=== PATIENT | male | born 1950 | race Caucasian/White ===

== ENCOUNTER 2016-04-16 18:03 | Inpatient (IN) | payer OTHER ==
--- NOTE | 2016-04-16 19:13 | EDPHY ---
H & P HPI/ROS: CHIEF COMPLAINT: back pain HISTORY OF PRESENT ILLNESS: Patient is a 66-year-old male status post CVA with right-sided paralysis who presents to the emergency department with ongoing back pain. He states he has had chronic low back pain. He was in [place] but was kicked out because he ran out of insurance. He has been on the street. He is brought in by ambulance for his back pain. He was found to have stool. The patient denies incontinence but states that he has trouble getting out of his wheelchair because he is homeless. Patient reports mild discomfort in the skin around his buttocks. He has had no fevers or chills. Patient denies scrotal pain. No dysuria or frequency. REVIEW OF SYSTEMS: My complete review of systems is negative except as mentioned in the HPI. Past Medical/Surgical History: Includes CVA, hyperlipidemia, hypertension, alcohol abuse, marijuana abuse Social history: The patient uses alcohol and marijuana. The patient is homeless. Smoking Status: Heavy smoker Physical Exam: 36.4, 115/76, 104, 18, 94% on room air GENERAL: No acute distress, alert. HEENT: Eyes normal to inspection, normal pharynx, no signs of dehydration. NECK: No thyromegaly, no lymphadenopathy, supple. RESPIRATORY: Clear to auscultation bilaterally, no rales, rhonchi or wheezing. CVS: Regular rate and rhythm, no rubs, murmurs, or gallops. ABDOMEN: Soft, nontender, nondistended, no organomegaly. : The patient is covered in stool. Patient has a mildly erythematous scrotum. No tenderness to palpation. No palpable mass. Patient has skin break down in the perineum and posterior thigh bilaterally. BACK: Normal to inspection, no CVA tenderness. SKIN: Normal color, no rash, warm, dry. No pallor. CU exam. EXTREMITIES: No pedal edema, no calf tenderness, no Homans sign or cords, no joint swelling. NEURO/PSYCH: Higher functions: Alert and Oriented x3. Normal speech and cognition. Normal mood and affect. Cranial nerves: right facial droop (baseline). Cerebellar: Normal as tested. Good finger to nose, good [id number], normal gait. Peripheral exam: Right upper extremity contracture. Weakness in right upper extremity and right lower extremity. Normal sensation. Constitutional: Initial Vital Signs Temperature (C) 36.4 C 04/16/16 18:10 Heart Rate 104 H 04/16/16 18:10 Respiratory Rate 18 04/16/16 18:10 Blood Pressure 115/76 04/16/16 18:10 O2 Sat (%) 94 04/16/16 18:10 O2 Delivery Mode Room Air Allergies/Adverse Reactions: Tetracyclines Allergy (Verified 04/16/16 18:14) Home Medications: Medication Instructions Recorded Atorvastatin Calcium [Lipitor 20 20 mg PO DAILY 05/24/15 mg (*)] Clopidogrel Bisulfate [Plavix (*)] 75 mg PO DAILY 05/24/15 amLODIPine BESYLATE [Norvasc 5 mg 5 mg PO DAILY@08 05/24/15 (*)] Acetaminophen [Tylenol ES 500 mg 1,000 mg PO Q8 PRN #0 tab 07/21/15 (*)] Cyclobenzaprine [Flexeril 10 MG 10 mg PO TID PRN #30 tab 07/21/15 (*)] Ketorolac Tromethamine [Toradol] 10 mg PO Q6H PRN #16 tab 07/21/15 Lidocaine 5% [Lidoderm 5% Patch 1 ea TD DAILY21 #30 patch 07/21/15 (*)] Patch Removal 1 ea TD DAILY #0 patch 07/21/15 Polyethylene Glycol 3350 [Miralax 17 gm PO DAILY #0 pkt 07/21/15 17 gm (*)] LORazepam 08/06/15 Lipitor 08/06/15 [place] 5/325 (RX) 08/06/15 Seroquel 08/06/15 oxyCODONE/APAP 5/325 [Percocet 1 - 2 tab PO Q6-8PRN PRN #20 tab 09/11/15 5/325 (RX)] Medical Decision Making ED Course/Re-evaluation: In the emergency department I met EMS on arrival. I took report. Patient was cleaned by the nursing staff. Patient had IV placed. Laboratory studies were ordered. Patient was noted to have a low [place] 128[place] [address]. I discussed the patient with Dr. Carlson. He will admit the patient for further evaluation and placement. Patient agrees with this plan. Differential Diagnosis: My differential includes but is not limited to previous CVA, cauda equina syndrome, low back pain, disc herniation, Stephanie's gangrene, cellulitis, abscess, ulceration, bacteremia, sepsis Departure - Departure Disposition: [facility] Inpatient Acute Clinical Impression: Skin breakdown, Hyponatremia Low back pain Qualifiers: Chronicity: chronic Back pain laterality: midline Sciatica presence: without sciatica Qualifier Code: (M54.5) Low back pain Condition: Good
[2016-04-16] MEDS ORDERED: NS 1,000 ML IV ONE (19:39)
[2016-04-16 19:53] LABS: % IMMATURE GRANULYOCYTES 0.5 % (0.0-1.1); ABSOLUTE IMMATURE GRANULOCYTES 0.08 10^3/uL (0.00-0.10); ADD DIFF? NO; ADD MORPH? NO; ADD SCAN? NO; ATYPICAL LYMPHOCYTE FLAG 0 (0-99); FRAGMENT RBC FLAG 0 (0-99); HEMATOCRIT 40.4 % (40.0-51.0); HEMOGLOBIN 14.4 g/dL (13.7-17.5); LEFT SHIFT FLG 0 (0-99); LIPEMIA HEMOLYSIS FLAG 90 (0-99); MEAN CELL HEMOGLOBIN 30.7 pg (27.9-34.1); MEAN CELL HEMOGLOBIN CONCENTR. 35.6 g/dL (32.4-36.7); MEAN CELL VOLUME 86.1 fL (81.5-99.8); MEAN PLATELET VOLUME 8.8 fL (8.7-11.7); PLATELET CLUMPS FLAG 0 (0-99); PLATELET COUNT 313 10^3/uL (150-400); RED BLOOD CELL COUNT 4.69 10^6/uL (4.40-6.38); RED CELL DISTRIBUTION WIDTH 14.6 % (11.5-15.2)
[2016-04-16 20:04] LABS: ANION GAP 13 mEq/L (8-16); CALCIUM 9.5 mg/dL (8.5-10.4); CARBON DIOXIDE 22 mEq/l (22-31); CHLORIDE 94 mEq/L (97-110); CREATININE 0.7 mg/dL (0.7-1.3); GLOMERULAR FILTRATION RATE > 60; GLUCOSE 108 mg/dL (70-100); POTASSIUM 3.9 mEq/L (3.5-5.2); SODIUM 129 mEq/L (134-144)
[2016-04-16] MEDS: oxyCODONE IR 5 MG TAB PO PRN (22:01)
--- NOTE | 2016-04-16 23:07 | GHP ---
[f rep st] HISTORY AND PHYSICAL DATE OF ADMISSION: 04/16/2016 CHIEF COMPLAINT: Weakness. HISTORY OF PRESENT ILLNESS: This is a 66-year-old male with a history of CVA with residual right-sided weakness who left [facility] 2 weeks ago after he did not pay rent. Since leaving [facility], he has been homeless. He is wheelchair bound. He tells me that he has been very weak and has had problems toileting himself. He has been very hungry and has not had food to eat. The patient presented to the emergency department complaining of acute on chronic low back pain. He reports having trouble getting out of his wheelchair and was found to be covered in feces. He denies having any fevers or chills. Denies any new neurologic deficits. He denies any chest pain or shortness of breath. He denies any pain with urination. PAST MEDICAL HISTORY: 1. CVA with residual right-sided weakness approximately 7 years ago. 2. Hypertension. 3. Dyslipidemia. HOME MEDICATIONS: Reviewed. Refer to [facility] for details. ALLERGIES: Tetracycline. SOCIAL HISTORY: Smokes half a pack of cigarettes per day. Denies any alcohol or illicit drug use. FAMILY HISTORY: Reviewed and noncontributory. REVIEW OF SYSTEMS: Comprehensive 10-point review of systems was done and was negative except for as mentioned in the HPI. PHYSICAL EXAMINATION: VITAL SIGNS: Blood pressure 144/80, pulse 99, respiratory rate 18, O2 sat 95% on room air. Temperature afebrile. GENERAL: No acute distress. Disheveled. HEAD: Normocephalic, atraumatic. EYES: PERRLA. Sclerae are anicteric. CARDIOVASCULAR: S1, S2. No JVD. He has 1+ edema, right lower extremity. LUNGS: Clear. No wheezes, rales, or rhonchi. ABDOMEN: Soft, nontender, nondistended. No guarding or rebound tenderness. Normoactive bowel sounds. EXTREMITIES: No clubbing or cyanosis. NEURO: The patient has chronic right-sided weakness. No new focal deficits SKIN: The patient's scrotum is erythematous. He has erythema with some skin breakdown in his thighs and perineum. DIAGNOSTICS: WBC 16, hemoglobin 14.4, hematocrit 40.4, platelets 313. Sodium 129, potassium 3.9, chloride 94, CO2 22, BUN 16, creatinine 0.7, glucose 108. ASSESSMENT AND PLAN: This is a 66-year-old male with a history of stroke and residual right-sided weakness presenting with: 1. Failure to thrive and weakness. Found to be covered in stool with skin breakdown on his perineum. Plan: Once again, the patient had been at [facility], but seems to have been possibly kicked out 2 weeks ago. The patient states that he would not go back there. He will need further care. We will ask for a wound care consultation as well as PT and OT. 2. Leukocytosis without obvious source of infection. Plan: We will monitor for signs and symptoms of infection and repeat a CBC in the morning. We will consider stool studies if he has diarrhea. 3. Hyponatremia that appears to be euvolemic to hypovolemic. Plan: For now, will place him on fluid restriction overnight. We will order a urine sodium as well as a TSH. 4. The patient is at high risk for VTE, and will be placed on low-molecular weight heparin for DVT prophylaxis. 5. Disposition. The patient will be admitted to the hospital under inpatient status since he is high risk and will likely require hospitalization through 2 midnights. 6. Back pain, [id number], with chronic opioid dependence. PLAN: Will continue the patient's home dose of pain medications. If he continues to have back pain, it would be reasonable to proceed with further imaging of his low back as indicated. /[id number]/MODL and [id number]/MODL. MTDD
[2016-04-16 23:18] LABS: COLOR YELLOW; LEUKOCYTE ESTERASE,URINE NEGATIVE (NEGATIVE); NITRITE,URINE NEGATIVE (NEGATIVE)
[2016-04-17 04:54] LABS: ADD DIFF? NO; ADD MORPH? NO; ADD SCAN? NO; ATYPICAL LYMPHOCYTE FLAG 10 (0-99); FRAGMENT RBC FLAG 0 (0-99); HEMOGLOBIN 12.5 g/dL (13.7-17.5); LEFT SHIFT FLG 0 (0-99); LIPEMIA HEMOLYSIS FLAG 90 (0-99); PLATELET CLUMPS FLAG 0 (0-99); RED CELL DISTRIBUTION WIDTH 14.6 % (11.5-15.2)
[2016-04-17 04:59] LABS: % IMMATURE GRANULYOCYTES 0.6 % (0.0-1.1); ABSOLUTE IMMATURE GRANULOCYTES 0.05 10^3/uL (0.00-0.10); HEMATOCRIT 35.2 % (40.0-51.0); MEAN CELL HEMOGLOBIN 30.3 pg (27.9-34.1); MEAN CELL HEMOGLOBIN CONCENTR. 35.5 g/dL (32.4-36.7); MEAN CELL VOLUME 85.4 fL (81.5-99.8); MEAN PLATELET VOLUME 9.1 fL (8.7-11.7); PLATELET COUNT 265 10^3/uL (150-400); RED BLOOD CELL COUNT 4.12 10^6/uL (4.40-6.38)
[2016-04-17 05:12] LABS: ANION GAP 11 mEq/L (8-16); CALCIUM 8.9 mg/dL (8.5-10.4); CARBON DIOXIDE 21 mEq/l (22-31); CHLORIDE 98 mEq/L (97-110); CREATININE 0.9 mg/dL (0.7-1.3); GLOMERULAR FILTRATION RATE > 60; GLUCOSE 125 mg/dL (70-100); POTASSIUM 3.7 mEq/L (3.5-5.2); SODIUM 130 mEq/L (134-144)
[2016-04-17] MEDS: CLOPIDOGREL BISULFATE 75 MG TAB PO SCH (08:49)
[2016-04-17] MEDS: CYCLOBENZAPRINE 10 MG TAB PO PRN ×2 (08:49→14:55)
[2016-04-17] MEDS: amLODIPine BESYLATE 5 MG TAB PO SCH (08:49)
[2016-04-17] MEDS: oxyCODONE IR 5 MG TAB PO PRN ×3 (08:50→20:19)
[2016-04-17] MEDS: ENOXAPARIN 40 MG/0.4 ML SYR SC SCH (08:50)
[2016-04-17] MEDS: ATORVASTATIN CALCIUM 20 MG TAB PO SCH (08:50)
[2016-04-17] MEDS ORDERED: ACETAMINOPHEN 325 MG TAB PO PRN (09:14)
[2016-04-17] MEDS ORDERED: ONDANSETRON 4 MG/2 ML VIAL IVP PRN (09:14)
[2016-04-17] MEDS: NS 1,000 ML IV SCH (10:23)
--- NOTE | 2016-04-17 15:27 | HOSPPROG ---
Hospitalist Progress Note Assessment/Plan: * Hyponatremia due to dehydration -IVF NS * h/o CVA with right weakness - WC bound -Plavix * Skin breakdown -strategic planning manager to see * Tobacco dependence * Chronic LBP - unchanged Subjective: No new complaints Objective: Vital Signs Temp Pulse Resp BP Pulse Ox 36.9 C 144 H 18 119/64 92 04/17/16 08:00 04/17/16 13:51 04/17/16 08:00 04/17/16 08:00 04/17/16 08:00 Laboratory Results 04/17/16 04:19 04/17/16 04:19 04/16/16 04/17/16 04/18/16 05:59 05:59 05:59 Intake Total 500 Output Total 150 200 Balance 350 -200 - Physical Exam Constitutional: no apparent distress, appears nourished, not in pain Cardiovascular: regular rate and rhythym, no murmur, rub, or gallop Respiratory: no respiratory distress, no rales or rhonchi, clear to auscultation Gastrointestinal: normoactive bowel sounds, soft, non-tender abdomen, no palpable masses Skin: no rashes or abrasions, no fluctuance, no induration Neurologic: AAOx3, sensation intact bilaterally Psychiatric: interacting appropriately, not anxious, not encephalopathic, thought process linear ICD10 Worksheet Patient Problems: Problems Problem Status Diagnosed Hyponatremia Acute Low back pain Acute Multiple rib fractures Acute Pneumothorax Acute Skin breakdown Acute Failure to thrive Acute Fall Acute Right lower lobe pneumonia Acute Weakness Acute
--- NOTE | 2016-04-17 15:36 | WOCRNPDOC ---
WOCRN Advanced Assessment Note - Skin Integrity Problem, Advanced Assess Bilateral Medial Thigh Incont Assoc Dermatitis Dressing Type: Open to Air Site Measurement - Head-to-Toe Length X Width X Depth (cm): [id number] Skin Integrity Problem Comment: Scrotum, lenora area and bilateral inner thighs with partial thickness openinings and denudement. Will supply clear zinc lotion to apply. Please reconsult prn.
--- NOTE | 2016-04-17 16:15 | CPEKG ---
Heart Rate: 74 RR Interval: 811 P-R Interval: 160 QRSD Interval: 96 QT Interval: 384 QTC Interval: 426 P Sassafras: 40 QRS Sassafras: -15 T Wave Sassafras: 0 EKG Severity - OTHERWISE NORMAL ECG - EKG Impression: SINUS RHYTHM EKG Impression: BORDERLINE LEFT AXIS DEVIATION Electronically Signed By: Anton Hirsch 18-Apr-2016 21:11:00
[2016-04-18] MEDS: oxyCODONE IR 5 MG TAB PO PRN ×3 (00:27→20:39)
[2016-04-18] MEDS: CYCLOBENZAPRINE 10 MG TAB PO PRN (00:27)
[2016-04-18] MEDS: NS 1,000 ML IV SCH (00:27)
[2016-04-18 04:47] LABS: % IMMATURE GRANULYOCYTES 0.5 % (0.0-1.1); ABSOLUTE IMMATURE GRANULOCYTES 0.02 10^3/uL (0.00-0.10); ADD DIFF? NO; ADD MORPH? NO; ADD SCAN? NO; ATYPICAL LYMPHOCYTE FLAG 30 (0-99); FRAGMENT RBC FLAG 0 (0-99); HEMATOCRIT 34.7 % (40.0-51.0); HEMOGLOBIN 11.9 g/dL (13.7-17.5); LEFT SHIFT FLG 0 (0-99); LIPEMIA HEMOLYSIS FLAG 90 (0-99); MEAN CELL HEMOGLOBIN 29.8 pg (27.9-34.1); MEAN CELL HEMOGLOBIN CONCENTR. 34.3 g/dL (32.4-36.7); MEAN PLATELET VOLUME 8.9 fL (8.7-11.7); PLATELET CLUMPS FLAG 0 (0-99); PLATELET COUNT 220 10^3/uL (150-400); RED BLOOD CELL COUNT 3.99 10^6/uL (4.40-6.38); RED CELL DISTRIBUTION WIDTH 14.7 % (11.5-15.2)
[2016-04-18 05:12] LABS: ANION GAP 7 mEq/L (8-16); CALCIUM 8.5 mg/dL (8.5-10.4); CARBON DIOXIDE 24 mEq/l (22-31); CHLORIDE 104 mEq/L (97-110); CREATININE 0.9 mg/dL (0.7-1.3); GLOMERULAR FILTRATION RATE > 60; GLUCOSE 86 mg/dL (70-100); POTASSIUM 3.9 mEq/L (3.5-5.2); SODIUM 135 mEq/L (134-144)
[2016-04-18] MEDS: CLOPIDOGREL BISULFATE 75 MG TAB PO SCH (08:26)
[2016-04-18] MEDS: amLODIPine BESYLATE 5 MG TAB PO SCH (08:26)
[2016-04-18] MEDS: ATORVASTATIN CALCIUM 20 MG TAB PO SCH (08:26)
[2016-04-18] MEDS: ENOXAPARIN 40 MG/0.4 ML SYR SC SCH (08:27)
--- NOTE | 2016-04-18 13:21 | HOSPPROG ---
Hospitalist Progress Note Assessment/Plan: * Hyponatremia due to dehydration -resolved * h/o CVA with right weakness - WC bound -Plavix -very frustrated with his expressive aphasia - gets agitated * Skin breakdown -budget report clerk to see * Tobacco dependence * Chronic LBP - unchanged Subjective: no new complaints Objective: Vital Signs Temp Pulse Resp BP Pulse Ox 36.9 C 88 18 116/81 H 89 L 04/18/16 07:34 04/18/16 07:34 04/18/16 07:34 04/18/16 07:34 04/18/16 07:34 Laboratory Results 04/18/16 04:17 04/18/16 04:17 04/17/16 04/18/16 04/19/16 05:59 05:59 05:59 Intake Total 500 1570 1440 Output Total 150 900 500 Balance 350 670 940 - Physical Exam Constitutional: no apparent distress, appears nourished, not in pain Ears, Nose, Mouth, Throat: moist mucous membranes, hearing normal, ears appear normal, no oral mucosal ulcers Cardiovascular: regular rate and rhythym, no murmur, rub, or gallop Gastrointestinal: normoactive bowel sounds, soft, non-tender abdomen, no palpable masses Skin: no rashes or abrasions, no fluctuance, no induration Neurologic: AAOx3, weakness (right), facial droop (right), other (significant expressive aphasia) Psychiatric: interacting appropriately, not anxious, not encephalopathic, thought process linear ICD10 Worksheet Patient Problems: Problems Problem Status Diagnosed Hyponatremia Acute Low back pain Acute Multiple rib fractures Acute Pneumothorax Acute Skin breakdown Acute Failure to thrive Acute Fall Acute Right lower lobe pneumonia Acute Weakness Acute
[2016-04-19] MEDS: oxyCODONE IR 5 MG TAB PO PRN ×4 (02:05→21:13)
[2016-04-19] MEDS: CYCLOBENZAPRINE 10 MG TAB PO PRN ×2 (04:31→17:54)
[2016-04-19] MEDS: amLODIPine BESYLATE 5 MG TAB PO SCH (08:34)
[2016-04-19] MEDS: ENOXAPARIN 40 MG/0.4 ML SYR SC SCH (08:34)
[2016-04-19] MEDS: ATORVASTATIN CALCIUM 20 MG TAB PO SCH (08:34)
[2016-04-19] MEDS: CLOPIDOGREL BISULFATE 75 MG TAB PO SCH (08:35)
--- NOTE | 2016-04-19 14:59 | HOSPPROG ---
Hospitalist Progress Note Assessment/Plan: * Hyponatremia due to dehydration -resolved * h/o CVA with right weakness - WC bound -Plavix -very frustrated with his expressive aphasia - gets agitated -screaming at staff all night long -will add low dose zyprexa with prn ativan * Skin breakdown -wound care * Tobacco dependence * Chronic LBP - unchanged * Homeless - await SNF placement Subjective: Per nursing he was very agitated all night, screaming a staff for hours Objective: Vital Signs Temp Pulse Resp BP Pulse Ox 36.6 C 78 18 123/78 H 93 04/19/16 07:52 04/19/16 07:52 04/19/16 07:52 04/19/16 08:34 04/19/16 07:52 Laboratory Results 04/18/16 04:17 04/18/16 04:17 04/18/16 04/19/16 04/20/16 05:59 05:59 05:59 Intake Total 1570 2512 Output Total 900 2025 950 Balance 670 487 -950 - Physical Exam Constitutional: no apparent distress, appears nourished, not in pain Cardiovascular: regular rate and rhythym, no murmur, rub, or gallop Respiratory: no respiratory distress, no rales or rhonchi, clear to auscultation Gastrointestinal: normoactive bowel sounds, soft, non-tender abdomen, no palpable masses Skin: no rashes or abrasions, no fluctuance, no induration Neurologic: AAOx3, sensation intact bilaterally, weakness, facial droop, other ( expressive aphasia) Psychiatric: interacting appropriately, not anxious, not encephalopathic, thought process linear, depressed, flat affect ICD10 Worksheet Patient Problems: Problems Problem Status Diagnosed Hyponatremia Acute Low back pain Acute Multiple rib fractures Acute Pneumothorax Acute Skin breakdown Acute Failure to thrive Acute Fall Acute Right lower lobe pneumonia Acute Weakness Acute
[2016-04-19] MEDS: OLANZapine 2.5 MG TAB PO SCH ×2 (16:04→21:13)
[2016-04-20] MEDS: CYCLOBENZAPRINE 10 MG TAB PO PRN (01:23)
[2016-04-20] MEDS: oxyCODONE IR 5 MG TAB PO PRN ×6 (01:24→23:28)
[2016-04-20] MEDS: LORazepam 0.5 MG TAB PO PRN ×4 (05:41→23:28)
[2016-04-20 05:52] LABS: ANION GAP 8 mEq/L (8-16); CALCIUM 8.9 mg/dL (8.5-10.4); CARBON DIOXIDE 26 mEq/l (22-31); CHLORIDE 101 mEq/L (97-110); CREATININE 0.7 mg/dL (0.7-1.3); GLOMERULAR FILTRATION RATE > 60; GLUCOSE 112 mg/dL (70-100); POTASSIUM 4.2 mEq/L (3.5-5.2); SODIUM 135 mEq/L (134-144)
[2016-04-20] MEDS: OLANZapine 2.5 MG TAB PO SCH ×2 (09:50→19:40)
[2016-04-20] MEDS: CLOPIDOGREL BISULFATE 75 MG TAB PO SCH (09:50)
[2016-04-20] MEDS: ENOXAPARIN 40 MG/0.4 ML SYR SC SCH (09:50)
[2016-04-20] MEDS: ATORVASTATIN CALCIUM 20 MG TAB PO SCH (09:51)
[2016-04-20] MEDS: amLODIPine BESYLATE 5 MG TAB PO SCH (09:51)
--- NOTE | 2016-04-20 12:58 | HOSPPROG ---
Hospitalist Progress Note Assessment/Plan: ASSESSMENT/PLAN: # hyponatremia due to dehydration - resolved # history of a CVA with right-sided weakness/aphasic - Zyprexa added due to frustration with aphasia # tobacco use # chronic LBP # homeless - await SNF SUBJECTIVE: Complains of back pain OBJECTIVE: Vitals reviewed Comfortable, no acute distress; aphasia Regular rate and rhythm, no murmurs rubs or gallops No respiratory distress, lungs clear to auscultation bilaterally; no wheezes rales or rhonchi Abdomen with normal bowel sounds, soft, nontender, nondistended LABORATORY DATA: Sodium normal IMAGING: None MICROBIOLOGY: None FOOD SERVICE SUPERVISOR: EKG reviewed: Sinus rhythm chart reviewed Objective: Vital Signs Temp Pulse Resp BP Pulse Ox 36.8 C 69 14 134/84 H 97 04/20/16 08:00 04/20/16 08:00 04/20/16 08:00 04/20/16 09:51 04/20/16 08:00 Laboratory Results 04/18/16 04:17 04/20/16 04:32 04/19/16 04/20/16 04/21/16 05:59 05:59 05:59 Intake Total 2512 1060 Output Total 2024 1700 Balance 487 -640 ICD10 Worksheet Patient Problems: Problems Problem Status Diagnosed Hyponatremia Acute Low back pain Acute Multiple rib fractures Acute Pneumothorax Acute Skin breakdown Acute Failure to thrive Acute Fall Acute Right lower lobe pneumonia Acute Weakness Acute
--- NOTE | 2016-04-20 17:34 | DX ---
Lumbar Spine, Two Views April 20, 2016 Indication: Back pain Technique: Supine AP and lateral views. Comparison: Lumbar spine series dated November 19, 2012 and MRI of the lumbar spine dated December 05 3 Findings: The demineralized lumbar spine is anatomically aligned. No acute compression fracture. Mil d compression deformities at T11 and T12 and bony fusion of L2 and L3 vertebral bodies are all unchan ged. Mild multilevel degenerative disk disease and atherosclerotic abdominal aorta are unchanged. Impression: 1. No acute compression fracture. 2. Mild multilevel degenerative disk disease and demineralization are unchanged.
[2016-04-21] MEDS: LORazepam 0.5 MG TAB PO PRN ×4 (05:47→18:33)
[2016-04-21] MEDS: oxyCODONE IR 5 MG TAB PO PRN ×4 (05:47→18:33)
[2016-04-21] MEDS: amLODIPine BESYLATE 5 MG TAB PO SCH (09:28)
[2016-04-21] MEDS: ATORVASTATIN CALCIUM 20 MG TAB PO SCH (09:32)
[2016-04-21] MEDS: OLANZapine 2.5 MG TAB PO SCH ×2 (09:32→20:16)
[2016-04-21] MEDS: CLOPIDOGREL BISULFATE 75 MG TAB PO SCH (09:32)
[2016-04-21] MEDS: ENOXAPARIN 40 MG/0.4 ML SYR SC SCH (09:32)
[2016-04-21] MEDS ORDERED: BISACODYL 10 MG SUPP PR PRN (09:42)
[2016-04-21] MEDS ORDERED: POLYETHYLENE GLYCOL 3350 17 GM PKT PO PRN (09:42)
[2016-04-21] MEDS ORDERED: MAGNESIUM HYDROXIDE 30 ML UDCUP PO PRN (09:42)
[2016-04-21] MEDS ORDERED: LACTULOSE 20 GM/30 ML UDCUP PO PRN (09:42)
[2016-04-21] MEDS: CYCLOBENZAPRINE 10 MG TAB PO PRN (13:39)
--- NOTE | 2016-04-21 13:55 | HOSPPROG ---
Hospitalist Progress Note Assessment/Plan: ASSESSMENT/PLAN: # hyponatremia due to dehydration - resolved # history of a CVA with right-sided weakness/aphasic - Zyprexa added due to frustration with aphasia # tobacco use # chronic LBP - XR nothing acute # homeless - await SNF SUBJECTIVE: Sitting in a chair, appears comfortable today OBJECTIVE: Vitals reviewed Comfortable, no acute distress; aphasia Regular rate and rhythm, no murmurs rubs or gallops No respiratory distress, lungs clear to auscultation bilaterally; no wheezes rales or rhonchi Abdomen with normal bowel sounds, soft, nontender, nondistended LABORATORY DATA: IMAGING: Lumbar spine x-ray reviewed, nothing acute MICROBIOLOGY: None Objective: Vital Signs Temp Pulse Resp BP Pulse Ox 36.9 C 101 H 16 124/82 H 95 04/21/16 10:14 04/21/16 10:14 04/21/16 10:14 04/21/16 10:14 04/21/16 10:14 Laboratory Results 04/18/16 04:17 04/20/16 04:32 04/20/16 04/21/16 04/22/16 05:59 05:59 05:59 Intake Total 1060 Output Total 1700 1300 Balance -640 -1300 ICD10 Worksheet Patient Problems: Problems Problem Status Diagnosed Hyponatremia Acute Low back pain Acute Multiple rib fractures Acute Pneumothorax Acute Skin breakdown Acute Failure to thrive Acute Fall Acute Right lower lobe pneumonia Acute Weakness Acute
[2016-04-21] MEDS: SENNOSIDES/DOCUSATE SODIUM TAB PO SCH (20:16)
[2016-04-22] MEDS: oxyCODONE IR 5 MG TAB PO PRN ×5 (00:31→18:26)
[2016-04-22] MEDS: LORazepam 0.5 MG TAB PO PRN ×5 (00:32→18:27)
[2016-04-22] MEDS: OLANZapine 2.5 MG TAB PO SCH ×2 (09:57→19:53)
[2016-04-22] MEDS: SENNOSIDES/DOCUSATE SODIUM TAB PO SCH ×2 (09:57→19:53)
[2016-04-22] MEDS: amLODIPine BESYLATE 5 MG TAB PO SCH (09:57)
[2016-04-22] MEDS: CLOPIDOGREL BISULFATE 75 MG TAB PO SCH (09:57)
[2016-04-22] MEDS: ATORVASTATIN CALCIUM 20 MG TAB PO SCH (09:57)
[2016-04-22] MEDS: ENOXAPARIN 40 MG/0.4 ML SYR SC SCH (09:58)
--- NOTE | 2016-04-22 15:48 | HOSPPROG ---
Hospitalist Progress Note Assessment/Plan: ASSESSMENT/PLAN: # hyponatremia due to dehydration - resolved # history of a CVA with right-sided weakness/aphasic - Zyprexa added due to frustration with aphasia # tobacco use # chronic LBP - XR nothing acute # homeless - await SNF SUBJECTIVE: just showered OBJECTIVE: Vitals reviewed Comfortable, no acute distress; aphasia LABORATORY DATA: IMAGING: Lumbar spine x-ray reviewed, nothing acute MICROBIOLOGY: None Objective: Vital Signs Temp Pulse Resp BP Pulse Ox 36.9 C 93 16 130/77 H 95 04/21/16 23:27 04/22/16 08:00 04/22/16 08:00 04/22/16 09:57 04/22/16 08:00 Laboratory Results 04/18/16 04:17 04/20/16 04:32 04/21/16 04/22/16 04/23/16 05:59 05:59 05:59 Intake Total 2200 Output Total 1300 2060 600 Balance -1300 140 -600 ICD10 Worksheet Patient Problems: Problems Problem Status Diagnosed Hyponatremia Acute Low back pain Acute Multiple rib fractures Acute Pneumothorax Acute Skin breakdown Acute Failure to thrive Acute Fall Acute Right lower lobe pneumonia Acute Weakness Acute
[2016-04-23] MEDS: LORazepam 0.5 MG TAB PO PRN ×4 (04:15→20:49)
[2016-04-23] MEDS: oxyCODONE IR 5 MG TAB PO PRN ×4 (04:15→20:49)
[2016-04-23] MEDS: ENOXAPARIN 40 MG/0.4 ML SYR SC SCH (09:09)
[2016-04-23] MEDS: amLODIPine BESYLATE 5 MG TAB PO SCH (09:10)
[2016-04-23] MEDS: SENNOSIDES/DOCUSATE SODIUM TAB PO SCH ×2 (09:10→20:48)
[2016-04-23] MEDS: OLANZapine 2.5 MG TAB PO SCH ×2 (09:10→20:48)
[2016-04-23] MEDS: ATORVASTATIN CALCIUM 20 MG TAB PO SCH (09:10)
[2016-04-23] MEDS: CLOPIDOGREL BISULFATE 75 MG TAB PO SCH (09:10)
--- NOTE | 2016-04-23 09:31 | HOSPPROG ---
Hospitalist Progress Note Assessment/Plan: ASSESSMENT/PLAN: # hyponatremia due to dehydration - resolved # history of a CVA with right-sided weakness/aphasic - Zyprexa added due to frustration with aphasia # tobacco use # chronic LBP - XR nothing acute # homeless - await SNF - [place] to eval tomorrow SUBJECTIVE: Tearful, frustrated with his aphasic OBJECTIVE: Vitals reviewed Comfortable, no acute distress; aphasia LABORATORY DATA: IMAGING: MICROBIOLOGY: None Objective: Vital Signs Temp Pulse Resp BP Pulse Ox 36.8 C 100 16 125/82 H 93 04/22/16 23:10 04/23/16 08:00 04/23/16 08:00 04/23/16 09:10 04/23/16 08:00 Laboratory Results 04/18/16 04:17 04/20/16 04:32 04/22/16 04/23/16 04/24/16 05:59 05:59 05:59 Intake Total 2200 1100 Output Total 2060 2920 Balance 140 -1820 ICD10 Worksheet Patient Problems: Problems Problem Status Diagnosed Hyponatremia Acute Low back pain Acute Multiple rib fractures Acute Pneumothorax Acute Skin breakdown Acute Failure to thrive Acute Fall Acute Right lower lobe pneumonia Acute Weakness Acute
[2016-04-24] MEDS: LORazepam 0.5 MG TAB PO PRN ×3 (02:48→12:14)
[2016-04-24] MEDS: oxyCODONE IR 5 MG TAB PO PRN ×4 (02:49→16:16)
[2016-04-24 08:10] VITALS: PULSE 97; RESP 14; TEMP 98.5; O2SAT 94
--- NOTE | 2016-04-24 08:56 | HOSPPROG ---
Hospitalist Progress Note Assessment/Plan: #Hypovolemic hyponatremia -resolved #h/o CVA -residual aphasia #Homelessness -[place] to evaluate today Subjective: no acute events Objective: Vital Signs Temp Pulse Resp BP Pulse Ox 36.9 C 97 14 133/79 H 94 04/24/16 08:07 04/24/16 08:07 04/24/16 08:07 04/24/16 08:07 04/24/16 08:07 Laboratory Results 04/18/16 04:17 04/20/16 04:32 04/23/16 04/24/16 04/25/16 05:59 05:59 05:59 Intake Total 1100 2300 Output Total 2920 1450 250 Balance -1820 850 -250 - Physical Exam Constitutional: chronically ill appearing Eyes: PERRL Ears, Nose, Mouth, Throat: moist mucous membranes Cardiovascular: regular rate and rhythym Respiratory: no respiratory distress, other (diminshed throughout) Gastrointestinal: normoactive bowel sounds, soft, non-tender abdomen Genitourinary: no bladder fullness Skin: warm Musculoskeletal: other (RUE weakness (chronic)) Neurologic: AAOx3, CN II-XII Intact, other (difficulty getting words out) Psychiatric: interacting appropriately ICD10 Worksheet Patient Problems: Problems Problem Status Diagnosed Multiple rib fractures Acute Pneumothorax Acute Failure to thrive Acute Fall Acute Hyponatremia Acute Low back pain Acute Right lower lobe pneumonia Acute Skin breakdown Acute Weakness Acute
[2016-04-24] MEDS: ATORVASTATIN CALCIUM 20 MG TAB PO SCH (09:30)
[2016-04-24] MEDS: CLOPIDOGREL BISULFATE 75 MG TAB PO SCH (09:30)
[2016-04-24] MEDS: ENOXAPARIN 40 MG/0.4 ML SYR SC SCH (09:30)
[2016-04-24] MEDS: SENNOSIDES/DOCUSATE SODIUM TAB PO SCH (09:31)
[2016-04-24] MEDS: amLODIPine BESYLATE 5 MG TAB PO SCH (09:31)
[2016-04-24] MEDS: OLANZapine 2.5 MG TAB PO SCH (09:31)
[2016-04-24 09:33] VITALS: BP 126/75
--- NOTE | 2016-04-24 15:03 | PDIAF ---
- Diagnosis Code Status: Full Code - Medication Management Discharge Medications: Medications to Continue on Transfer Atorvastatin Calcium [Lipitor 20 mg (*)] 20 mg PO HS 05/24/15 [Last Taken 09:00] Clopidogrel Bisulfate [Plavix (*)] 75 mg PO DAILY 05/24/15 [Last Taken 07/16/15 09:00] amLODIPine BESYLATE [Norvasc 5 mg (*)] 5 mg PO DAILY@08 05/24/15 [Last Taken 05/01 09:00] Cyclobenzaprine [Flexeril 10 MG (*)] 10 mg PO TID PRN #30 tab 07/21/15 [Last Taken Unknown] Hydrocodone/Acetaminophen [[place] 5/325 (*)] 1 - 2 tab PO Q4H PRN 04/17/16 [Last Taken Unknown] Discharge Medications: Refer to the Discharge Home Medication list for PRN reason. - Orders Services needed: Registered Nurse, Certified Electronics Engineering Technologist, Master Market Development Manager , Physical Therapy, Occupational Therapy, Speech Language Pathologist - Follow Up Care Current Providers and Referrals: NONE *PRIMARY CARE P,. [Primary Care Provider] - As per Instructions
--- NOTE | 2016-04-24 16:00 | GDS ---
[f rep st] DISCHARGE SUMMARY DISCHARGE DIAGNOSES: 1. Hypovolemic, hyponatremia. 2. History of cerebrovascular accident with right-sided residual deficits and aphasia. 3. Homelessness. 4. Tobacco abuse. 5. Chronic low back pain. HPI: Patient is a 66-year-old male with history of CVA with residual right-sided weakness and aphasi a, who left [facility] 2 weeks ago after he did not pay rent. Since leaving there, he has been ho meless. He is wheelchair bound. He has been very weak and had problems toileting himself. He prese nted to the emergency room on 04/16/2016 complaining of acute on chronic low back pain. He was havin g trouble getting out of his wheelchair and found to be covered in feces. He denied any fevers, chil ls, or sweats. No issues with urination. HOSPITAL COURSE BY PROBLEM: 1. Failure to thrive/weakness: Patient had been homeless for a couple weeks after not paying rent, b ut it appears that he was actually kicked out. He was evaluated by PT/OT here, who recommended SNF p lacement and he will be transferred to [place] today. 2. Hypovolemic, hyponatremia, resolved. 3. History of CVA with right-sided weakness, asphasia: Patient is not currently on medication. Con tinue Lipitor, Plavix, and statin. 4. Benign hypertension: Continue of Norvasc. 5. Tobacco abuse: Patient counseled on cessation, declines patch. DISPOSITION: Patient is stable for discharge to [place] today. /[id number]/MODL
== END 2016-04-24 17:30 | DRG 641 ==
LOC: EDBD → EDUNIT# → OBSVTOIN 19:15 → F3N 20:20
PROVIDERS: ADMIT Family Medicine; ATTEND Family Medicine
DX: E87.1 Hypo-osmolality and hyponatremia (principal); I69.351 Hemiplegia and hemiparesis following cerebral infarction affecting right dominant side; E86.1 Hypovolemia; E86.0 Dehydration; G89.29 Other chronic pain; M54.5 Low back pain; R62.7 Adult failure to thrive; I10 Essential (primary) hypertension; E78.5 Hyperlipidemia, unspecified; F10.10 Alcohol abuse, uncomplicated; I69.320 Aphasia following cerebral infarction; F17.200 Nicotine dependence, unspecified, uncomplicated; F12.10 Cannabis abuse, uncomplicated; Z99.3 Dependence on wheelchair; Z59.0 Homelessness
CPT/HCPCS: 92507-GN; 92523-GN; 97116-GP; 97162-GP; 97166-GO; 97530-GO; 97530-GP; G8978-GP-CK; G8979-GP-CJ; G8987-GO-CK; G8988-GO-CI; G9162-GN-CM; G9163-GN-CL; G9164-GN-CL; J1650

== ENCOUNTER 2017-01-09 04:44 | Inpatient (IN) | payer OTHER ==
[2017-01-09] MEDS ORDERED: NS 1,000 ML IV ONE ×2 (04:56→07:15)
[2017-01-09] MEDS ORDERED: PANTOPRAZOLE SODIUM 80 MG in NS 100 ML IV ONE (04:57)
--- NOTE | 2017-01-09 05:08 | EDPHY ---
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 Patient states he felt nauseated and had some epigastric pain. The 1st time he vomited was bright red blood, the 2nd time it was very dark. He does take Plavix and has been using quite a bit of ibuprofen recently for low back pain. Does not have a history of ulcers or GI bleeding in the past. Does not have a strong alcohol history or history of esophageal varices. Patient has been experiencing epigastric pain for the last day or so. No fevers or chills. No chest pain or shortness of breath. ROS: 10 point Review of Systems is negative except as noted in the HPI. PMH: CVA Social History: Positive smoking, rare alcohol, no recreational drug use Family History: non-contributory Physical Exam: Gen: Awake, Alert, No Distress HEENT: Nose: no rhinorrhea Eyes: PERRLA, EOMI Mouth: Moist mucosa Neck: Supple, no JVD Chest: nontender, lungs clear to auscultation Heart: S1, S2 normal, no murmur Abd: Soft, moderate epigastric tenderness with voluntary guarding Back: no CVA tenderness, no midline tenderness Ext: no edema, non-tender Skin: no rash Neuro: CN II-XII intact, Sensation grossly intact, Strength 5/5 in bilateral upper and lower extremities - Personal History Current Tetanus/Diphtheria Vaccine: Unsure Current Tetanus Diphtheria and Acellular Pertussis (TDAP): Unsure - Medical/Surgical History Hx Asthma: No Hx Chronic Respiratory Disease: No Hx Diabetes: No Hx Cardiac Disease: No Hx Renal Disease: No Hx Cirrhosis: No Hx Alcoholism: Yes Hx HIV/AIDS: No Hx Splenectomy or Spleen Trauma: No Other PMH: HTN, hyperlipidemia, CVA-R side weakness, ETOH abuse - Social History Smoking Status: Heavy smoker Constitutional: Initial Vital Signs Temperature (C) 36.5 C 01/09/17 04:51 Heart Rate 93 01/09/17 04:51 Respiratory Rate 18 01/09/17 04:51 Blood Pressure 83/57 L 01/09/17 04:51 O2 Sat (%) 95 01/09/17 04:51 O2 Delivery Mode Room Air Allergies/Adverse Reactions: Tetracyclines Allergy (Verified 04/16/16 18:14) Home Medications: Medication Instructions Recorded Atorvastatin Calcium [Lipitor 20 20 mg PO HS 05/24/15 mg (*)] Clopidogrel Bisulfate [Plavix (*)] 75 mg PO DAILY 05/24/15 amLODIPine BESYLATE [Norvasc 5 mg 5 mg PO DAILY@08 05/24/15 (*)] Cyclobenzaprine [Flexeril 10 MG 10 mg PO TID PRN #30 tab 07/21/15 (*)] Sennosides/Docusate Sodium 1 - 2 tab PO BID #0 tab 04/24/16 [Senokot-S] amLODIPine BESYLATE [Norvasc 5 mg 5 mg PO DAILY@08 #0 tab 04/24/16 (*)] oxyCODONE IR [Oxycodone Ir (*)] 5 mg PO Q6H PRN #0 tab 04/24/16 Medical Decision Making ED Course/Re-evaluation: 66-year-old male on Plavix and taking ibuprofen with epigastric pain and vomiting blood x2. He has brown stool here. Initially hypotensive but never tachycardic. Patient responded to IV bolus with blood pressure 113. H&H are 12 and 35. He has gotten Protonix 80 mg IV. I have discussed test with Dr. Tony, GI. She would like the patient be kept NPO. She will plan on evaluating the patient today. I have discussed with Dr. bettina reddy, hospitalist. She will admit to the PCU for further care. - Data Points Laboratory Results: Laboratory Results 01/09/17 00:50 01/09/17 00:50 01/09/17 01/09/17 01/09/17 00:50 00:50 00:50 WBC 11.70 10^3/uL H 10^3/uL (3.80-9.50) RBC 3.83 10^6/uL L 10^6/uL (4.40-6.38) Hgb 11.7 g/dL L g/dL (13.7-17.5) Hct 34.6 % L % (40.0-51.0) MCV 90.3 fL fL (81.5-99.8) MCH 30.5 pg pg (27.9-34.1) MCHC 33.8 g/dL g/dL (32.4-36.7) RDW 15.6 % H % (11.5-15.2) Plt Count 319 10^3/uL 10^3/uL (150-400) MPV 10.2 fL fL (8.7-11.7) Neut % (Auto) 72.5 % % (39.3-74.2) Lymph % (Auto) 15.9 % % (15.0-45.0) Jerauld % (Auto) 8.3 % % (4.5-13.0) Eos % (Auto) 2.2 % % (0.6-7.6) Baso % (Auto) 0.3 % % (0.3-1.7) Nucleat RBC Rel Count 0.0 % % (0.0-0.2) Absolute Neuts (auto) 8.48 10^3/uL H 10^3/uL (1.70-6.50) Absolute Lymphs (auto) 1.86 10^3/uL 10^3/uL (1.00-3.00) Absolute Monos (auto) 0.97 10^3/uL H 10^3/uL (0.30-0.80) Absolute Eos (auto) 0.26 10^3/uL 10^3/uL (0.03-0.40) Absolute Basos (auto) 0.04 10^3/uL 10^3/uL (0.02-0.10) Absolute Nucleated RBC 0.00 10^3/uL 10^3/uL (0-0.01) Immature Gran % 0.8 % % (0.0-1.1) Immature Gran # 0.09 10^3/uL 10^3/uL (0.00-0.10) PT 14.0 SEC SEC (12.0-15.0) INR 1.09 (0.83-1.16) APTT 30.9 SEC SEC (23.0-38.0) Sodium 142 mEq/L mEq/L (134-144) Potassium 3.5 mEq/L mEq/L (3.5-5.2) Chloride 103 mEq/L mEq/L (97-110) Carbon Dioxide 26 mEq/l mEq/l (22-31) Anion Gap 13 mEq/L mEq/L (8-16) BUN 24 mg/dL H mg/dL (7-23) Creatinine 1.1 mg/dL mg/dL (0.7-1.3) Estimated GFR > 60 Glucose 145 mg/dL H mg/dL (70-100) Calcium 9.3 mg/dL mg/dL (8.5-10.4) Total Bilirubin Pending AST Pending ALT Pending Alkaline Phosphatase Pending Total Protein Pending Albumin Pending Lipase Pending Medications Given: Discontinued Medications Sodium Chloride (Ns) 1,000 mls @ 0 mls/hr IV ONCE ONE; Wide Open PRN Reason: Protocol Stop: 01/09/17 04:57 Last Admin: 01/09/17 05:00 Dose: 1,000 mls Pantoprazole Sodium 80 mg/ (Sodium Chloride) 100 mls @ 200 mls/hr IV ONCE ONE Stop: 01/09/17 05:26 Last Admin: 01/09/17 05:21 Dose: 100 mls Departure - Departure Disposition: [facility] Inpatient Acute Clinical Impression: Upper GI bleed Condition: Serious Referrals: Patient,NotPresent [Unknown] - As per Instructions
[2017-01-09 05:31] LABS: % IMMATURE GRANULYOCYTES 0.8 % (0.0-1.1); ABSOLUTE IMMATURE GRANULOCYTES 0.09 10^3/uL (0.00-0.10); ADD DIFF? NO; ADD MORPH? NO; ADD SCAN? NO; ATYPICAL LYMPHOCYTE FLAG 0 (0-99); FRAGMENT RBC FLAG 0 (0-99); HEMATOCRIT 34.6 % (40.0-51.0); HEMOGLOBIN 11.7 g/dL (13.7-17.5); LEFT SHIFT FLG 10 (0-99); LIPEMIA HEMOLYSIS FLAG 90 (0-99); MEAN CELL HEMOGLOBIN 30.5 pg (27.9-34.1); MEAN CELL HEMOGLOBIN CONCENTR. 33.8 g/dL (32.4-36.7); MEAN CELL VOLUME 90.3 fL (81.5-99.8); MEAN PLATELET VOLUME 10.2 fL (8.7-11.7); PLATELET CLUMPS FLAG 0 (0-99); PLATELET COUNT 319 10^3/uL (150-400); RED BLOOD CELL COUNT 3.83 10^6/uL (4.40-6.38); RED CELL DISTRIBUTION WIDTH 15.6 % (11.5-15.2)
[2017-01-09 05:32] LABS: INR 1.09 (0.83-1.16)
[2017-01-09 05:33] LABS: APTT 30.9 SEC (23.0-38.0)
[2017-01-09 06:59] LABS: ANION GAP 13 mEq/L (8-16); CALCIUM 9.3 mg/dL (8.5-10.4); CARBON DIOXIDE 26 mEq/l (22-31); CHLORIDE 103 mEq/L (97-110); CREATININE 1.1 mg/dL (0.7-1.3); GLOMERULAR FILTRATION RATE > 60; GLUCOSE 145 mg/dL (70-100); POTASSIUM 3.5 mEq/L (3.5-5.2)
[2017-01-09 07:01] LABS: SODIUM 142 mEq/L (134-144)
[2017-01-09 07:11] LABS: ALANINE AMINOTRANSFERASE 82 IU/L (21-72); ALBUMIN 3.2 g/dL (3.5-5.0); ALKALINE PHOSPHATASE 95 IU/L (38-126); ASPARTATE AMINOTRANSFERASE 55 IU/L (17-59); BILIRUBIN,TOTAL 0.7 mg/dL (0.1-1.4)
[2017-01-09] MEDS ORDERED: ACETAMINOPHEN 325 MG TAB PO PRN (07:15)
[2017-01-09] MEDS ORDERED: ONDANSETRON 4 MG/2 ML VIAL IVP PRN ×2 (07:15→16:04)
--- NOTE | 2017-01-09 08:18 | GHP ---
[f rep st] HISTORY AND PHYSICAL DATE OF ADMISSION: 01/09/2017 CHIEF COMPLAINT: Hematemesis. HISTORY OF PRESENT ILLNESS: This is a 66-year-old male with a history of a previous CVA with right-sided deficits on Plavix, who presents with sudden onset of abdominal epigastric pain and vomiting with bright red blood. The patient reports being in his normal state of health the day preceding with normal oral intake and stooling. Then, the morning of presentation, experienced more than 1 episode of bright red bloody emesis. The patient is feeling a little lightheaded with epigastric discomfort. Denies any chest pain , shortness of breath, palpitations. Denies headache, vision changes, arthralgias, myalgias, lower extremity edema. He does have persistent and stable right-sided deficits from his preceding CVA which are unchanged. Reports that he has been maintaining his low [facility] at the [facility]. PAST MEDICAL HISTORY: 1. CVA with right-sided deficits, chronic. 2. Tobacco abuse. 3. Hypertension. 4. Dyslipidemia. SOCIAL HISTORY: Patient smokes a half pack per day. Drinks alcohol once or twice a week, 1-2 beers. Occasional marijuana. No illicit drugs. FAMILY HISTORY: Negative for any GI bleeding or GI malignancies. ADVANCED DIRECTIVES: Patient is full cor, full tube. His daughter would be his medical decision maker. REVIEW OF SYSTEMS: A 10-point review of systems is negative with the exception of that reported in the HPI. PHYSICAL EXAMINATION: VITAL SIGNS: Blood pressure is 83/57, heart rate 93, respiratory rate 18, 95% on room air, 36.5. GENERAL: This is a thin-appearing chronically-ill middle-aged male, in no acute distress. HEENT: Notable for dry mucous membranes. Eyes: Negative for any icterus. CARDIAC: Patient is regular rate and rhythm. PULMONARY: Good respiratory effort. Clear to auscultation bilaterally. GASTROINTESTINAL: Positive bowel sounds. ABDOMEN: Soft and tender to palpation in the epigastrium. No rebound or guarding is appreciated. MUSCULOSKELETAL: Negative for any lower extremity edema. SKIN: Negative for any rashes. NEUROLOGIC: Patient is alert and oriented x3. He does have weakness of both the right upper and lower extremities. PSYCHIATRIC: He is pleasant and cooperative on interview and examination. DATA: White count 11.7, hemoglobin 11.7, which is recent baseline. Creatinine 1.1, baseline appears to be 0.7. INR 1.09. Telemetry, which I personally reviewed and interpreted, shows sinus rhythm. No acute ST-T changes. ASSESSMENT AND PLAN: This is a 66-year-old male presenting with acute upper gastrointestinal bleed. 1. Acute upper gastrointestinal bleed. The patient has bloody emesis with history of tobacco abuse, scheduled ibuprofen use for chronic pain, as well as occasional alcohol use. My suspicion is high for gastritis versus ulcers as a possible cause. Will bolus the patient with intravenous fluids. Keep him nothing by mouth, initiate a pantoprazole drip. Gastroenterology has been consulted from the emergency department. Will scope later today. 2. Hypotension. The patient is chronically on hypertension medications. Will hold these. Again, fluid bolus and placed on continuous and follow patient's pressures. 3. Normocytic anemia. The patient is presenting with his chronically low hemoglobin at 11. Will recheck at noon this afternoon after fluids holding the patient's cerebrovascular accident medications including Plavix. 4. MARYJO - creatinine above baseline - suspect volume related with acute bleed - NS and recheck 5. Prophylaxis contraindicated in the setting of acute gastrointestinal bleed. Will place sequential compression devices. 6. Diet. Nothing by mouth for esophagogastroduodenoscopy. 7. Disposition. I expect greater than 2 midnights as the patient is comorbidly ill, presenting with acute gastrointestinal bleed. Will need stabilization of his vital signs, and scoping prior to safe disposition. I have discussed the case with the emergency room physician. Patient will be triaged to the medical-surgical floor with telemetry monitoring. /[id number]/MODL MTDD
[2017-01-09] MEDS: PANTOPRAZOLE SODIUM 80 MG in NS 100 ML IV SCH ×2 (09:51→17:58)
[2017-01-09 12:09] LABS: HEMATOCRIT 32.2 % (40.0-51.0); HEMOGLOBIN 10.7 g/dL (13.7-17.5)
--- NOTE | 2017-01-09 14:36 | PDANEPAE ---
ANE History of Present Illness acute upper GI bleed ANE Past Medical History - Cardiovascular History Hx Hypertension: Yes Hx Arrhythmias: No Hx Chest Pain: No Hx Coronary Artery / Peripheral Vascular Disease: No Hx CHF / Valvular Disease: No Hx Palpitations: No - Pulmonary History Hx COPD: No Hx Asthma/Reactive Airway Disease: No Hx Recent Upper Respiratory Infection: No Hx Oxygen in Use at Home: No Hx Sleep Apnea: No Sleep Apnea Screening Result - Last Documented: Negative - Neurologic History Hx Cerebrovascular Accident: Yes Hx Seizures: No Hx Dementia: No - Endocrine History Hx Diabetes: No Hypothyroid: No Hyperthyroid: No Obesity: no - GI History GERD: moderate - Chronic Pain History Chronic Pain: No ANE Review of Systems Review of systems is: negative Review of Systems: - Exercise capacity Exercise capacity: limited by disability ANE Patient History - Allergies Allergies/Adverse Reactions: Tetracyclines Allergy (Verified 04/16/16 18:14) - Home Medications Home medications: home medication list seen and reviewed Home Medications: Atorvastatin Calcium [Lipitor 20 mg (*)] 20 mg PO HS 05/24/15 [Last Taken ] Clopidogrel Bisulfate [Plavix (*)] 75 mg PO DAILY 05/24/15 [Last Taken 01/08/17] Cholecalciferol Vit D3 [Vitamin D3 (*)] 50,000 unit PO Q30D 01/09/17 [Last Taken 01/08/17] Cyclobenzaprine [Flexeril 10 MG (*)] 10 mg PO HS 01/09/17 [Last Taken 01/08/17] Ibuprofen [Motrin (*)] 400 mg PO Q8HRS PRN 01/09/17 [Last Taken 01/08/17 17:00] Multivitamins [Multivitamin (*)] 1 each PO DAILY 01/09/17 [Last Taken 01/08/17] Sennosides/Docusate Sodium [Senokot-S] 2 tab PO BID PRN 01/09/17 [Last Taken ] amLODIPine BESYLATE [Norvasc 5 mg (*)] 5 mg PO DAILY 01/09/17 [Last Taken ] traMADol [Ultram 50 mg (*)] 50 mg PO Q6HRS PRN 01/09/17 [Last Taken 01/08/17 21: 00] - Anes Hx Anes Hx: no prior problems - Smoking Hx Smoking Status: Heavy smoker ANE Labs/Vital Signs - Labs Result Diagrams: 01/09/17 12:05 01/09/17 00:50 - Vital Signs Blood Pressure: 124/75 Heart Rate: 104 Respiratory Rate: 24 O2 Sat (%): 96 Height: 182.88 cm Weight: 77.111 kg ANE Physical Exam - Airway Neck exam: FROM Mallampati Score: Class 1 Mouth exam: dentures - Pulmonary Pulmonary: no respiratory distress - Cardiovascular Cardiovascular: regular rate and rhythym - ASA Status ASA Status: III ANE Anesthesia Plan Anesthesia Plan: GA with mask
[2017-01-09] MEDS ORDERED: PROPOFOL 200 MG/20 ML VIAL ONE ×2 (14:45)
[2017-01-09] MEDS ORDERED: SENNOSIDES/DOCUSATE SODIUM TAB PO PRN (15:43)
--- NOTE | 2017-01-09 15:45 | HOSPPROG ---
Hospitalist Progress Note Assessment/Plan: hematemesis w hct near baseline egd today hold nsaids and plavix Objective: Vital Signs Temp Pulse Resp BP Pulse Ox 36.5 C 104 H 24 H 124/75 H 96 01/09/17 14:24 01/09/17 14:35 01/09/17 14:35 01/09/17 14:35 01/09/17 14:35 Laboratory Results 01/09/17 12:05 01/08/17 01/09/17 01/10/17 05:59 05:59 05:59 Intake Total 1000 Balance 1000 PT 14.0 SEC (12.0-15.0) 01/09/17 00:50 INR 1.09 (0.83-1.16) 01/09/17 00:50 ICD10 Worksheet Patient Problems: Problems Problem Status Onset Upper GI bleed Acute Failure to thrive Acute Fall Acute Hyponatremia Acute Low back pain Acute Multiple rib fractures Acute Pneumothorax Acute Right lower lobe pneumonia Acute Skin breakdown Acute Weakness Acute
--- NOTE | 2017-01-09 15:59 | GIREPORT ---
[facility] Surgical Services - Endoscopy Department Patient Name: Mike Lambert Procedure Date: 01/09/2017 3:46 PM Patient Type: Inpatient Attending MD/ ER Physician: Shira Tony MD Procedure: Upper GI endoscopy Indications: Hematemesis Providers: Shira Tony MD Medicines: Monitored Anesthesia Care Complications: No immediate complications. Description of Procedure: After obtaining informed consent, the endoscope was passed under direct vision. Throughout the procedure, the patient's blood pressure, pulse, and oxygen saturations were monitored continuous ly. The Endoscope was introduced through the mouth, and advanced to the second part of duodenum. The upper GI endoscopy was accomplished without difficulty. The patient tolerated the procedure well . Findings: LA Grade A (one or more mucosal breaks less than 5 mm, not extending between tops of 2 mucosal f olds) esophagitis with no bleeding was found at the lower esophageal sphincter. A medium-sized hiatal hernia was present. Localized mildly erythematous mucosa without bleeding was found in the gastric fundus. One non-bleeding cratered duodenal ulcer with a visible vessel was found in the duodenal bulb. T he lesion was 7 mm in largest dimension. To prevent risk of rebleeding, one hemostatic clip was successfully placed. There was no bleeding at the end of the procedure. Estimated Blood Loss: Estimated blood loss: none. Post Op Diagnosis: - LA Grade A reflux esophagitis. - Medium-sized hiatal hernia. - Erythematous mucosa in the gastric fundus. - One non-bleeding duodenal ulcer with a visible vessel. Clip was placed. - No specimens collected. Recommendation: - Clear liquid diet. - Continue present medications. - Continue PPI IV - Monitor H+H until stable - Perform an H. pylori stool antigen (HpSA) test. Attending Participation: I personally performed the entire procedure. Shira Tony MD Shira Tony MD 01/09/2017 3:59:19 PM Number of Addenda: 0 Note Initiated On: 01/09/2017 3:46 PM Total Procedure Duration Time 0 hours 4 minutes 31 seconds [email or web address]
[2017-01-09] MEDS ORDERED: HYDROCODONE/APAP 5/325 TAB PO PRN (16:04)
[2017-01-09] MEDS ORDERED: LR 500 ML IV PRN (16:04)
[2017-01-09] MEDS ORDERED: NALOXONE HCL 0.4 MG/ML INJ IVP PRN (16:04)
[2017-01-09] MEDS ORDERED: ACETAMINOPHEN 500 MG TAB PO PRN (16:04)
[2017-01-09] MEDS ORDERED: fentaNYL 100 MCG/2 ML INJ IVP PRN (16:04)
[2017-01-09] MEDS ORDERED: ALBUTEROL 3 ML DEYVIAL IH PRN (16:04)
--- NOTE | 2017-01-09 16:04 | POSTANESTH ---
Post Anesthetic Evaluation Cardiovascular Status: Normal, Stable Respiratory Status: Normal, Stable Level of Consciousness/Mental Status: Can Participate in Eval Pain Control: Adequate, Prn Tx Ordered Nausea/Vomiting Control: Adequate, Prn Tx Ordered Complications Possibly Related to Anesthesia: None Noted
[2017-01-09] MEDS: HYDROCODONE/APAP 5/325 TAB PO PRN ×2 (16:47→20:30)
[2017-01-09] MEDS ORDERED: LORazepam 1 MG TAB PO ONE (17:00)
[2017-01-09] MEDS: traMADol 50 MG TAB PO PRN (17:12)
[2017-01-09] MEDS: NS 1,000 ML IV SCH (17:13)
--- NOTE | 2017-01-09 17:30 | GCON ---
[f rep st] CONSULTATION DATE OF CONSULTATION: 01/09/2017 CHIEF COMPLAINT: Hematemesis. HISTORY OF PRESENT ILLNESS: I am asked to see this patient in consultation by Dr. Cid for chief complaint of hematemesis. The patient is a 66-year-old who is status post stroke with hemiparesis on long-term Plavix. [facility] and this morning had episode of emesis that was noted to be bright red blood and may have had a few episodes. However, he has had no melena. Had a normal brown bowel movement today. He states he has had no prior history of hematemesis. No history of peptic ulcer disease. Denies taking NSAID use. Denies reflux symptoms or dysphagia. Has had no diarrhea or constipation. To me denies abdominal pain, although reports from the ER as he did have some abdominal discomfort before this happened. He has never had a colonoscopy or upper endoscopy before. ALLERGIES: Tetracycline. HOME MEDICATIONS: Lipitor, Plavix, Norvasc, Flexeril, Senokot, and oxycodone. PAST MEDICAL HISTORY: Notable for CVA with right-sided deficits, hyperlipidemia , dyslipidemia. FAMILY HISTORY: Negative for colon cancer. SOCIAL HISTORY: The patient states he drinks once or twice a week. REVIEW OF SYSTEMS: I performed a complete review of systems which is negative except for pertinent positives and negatives noted above in the HPI. PHYSICAL EXAM: VITALS: He is afebrile at 36.5, BP 94/56, pulse 72. CONSTITUTIONAL: He is alert and oriented. EYES: No scleral icterus. HEENT: No oral lesions. CARDIOVASCULAR: Regular rate and rhythm. CHEST: Clear to auscultation. ABDOMEN: Positive bowel sounds. No hepatosplenomegaly. No rebound. NEUROLOGIC: He has right-sided hemiparesis. SKIN: No clear skin lesions. LABORATORY DATA: BUN 24 and 1.6. INR is normal at 1.09. Hematocrit on admission was 34.6, repeat is 32.2. White count 11, platelets 319. Alkaline phosphatase normal at 95 with normal bilirubin. AST slightly elevated at 35 and ALT at 82. ASSESSMENT: Upper gastrointestinal bleed. Hemodynamically stable, although some low blood pressure. He has had a mild decrease in his hematocrit although BUN is not significantly elevated, but patient is higher risk for more significant bleeding given his long-term Plavix use and higher risk for endoscopy with history of stroke. Differential diagnosis would include Marisol-Ray tear, esophagitis, arteriovenous malformation, peptic ulcer disease, etc. PLAN: I do recommend upper endoscopy for evaluation to be done with anesthesia. I have discussed the risks and benefits and the patient agrees to proceed. For now, recommend PPI. Further recommendations to follow. Thanks for this consult. /[id number]/MODL MTDD
[2017-01-09] MEDS: ATORVASTATIN CALCIUM 20 MG TAB PO SCH (20:30)
[2017-01-09] MEDS: CYCLOBENZAPRINE 10 MG TAB PO SCH (20:30)
[2017-01-10] MEDS: HYDROCODONE/APAP 5/325 TAB PO PRN ×3 (01:10→21:36)
[2017-01-10] MEDS: PANTOPRAZOLE SODIUM 80 MG in NS 100 ML IV SCH ×2 (04:18→12:53)
[2017-01-10] MEDS: traMADol 50 MG TAB PO PRN (04:18)
[2017-01-10] MEDS: MULTIVITAMINS 1 EACH TAB PO SCH (10:07)
[2017-01-10] MEDS: amLODIPine BESYLATE 5 MG TAB PO SCH (10:07)
[2017-01-10] MEDS: NS 1,000 ML IV SCH (12:53)
--- NOTE | 2017-01-10 13:18 | HOSPPROG ---
Hospitalist Progress Note Assessment/Plan: 66 yo M w cva here w hematemesis; found to have large DU w visible, albeit non bleeding vessel. UGIB: has agreed to repeat hct today continue IV ppi hold plavix for 1 week (d/w gi) h pylori pending ABLA: await repeat hct proph: scd's htn: amlodipine hyperlipidemia: statin dispo: requires inpatient stay for UGIB w high risk lesion Subjective: case d/w dr wright. refused blood draw this AM but now amenable. eating w no nausea Objective: Vital Signs Temp Pulse Resp BP Pulse Ox 36.8 C 90 14 103/64 94 01/10/17 12:00 01/10/17 12:00 01/10/17 12:00 01/10/17 12:00 01/10/17 12:00 Laboratory Results 01/09/17 12:05 01/09/17 01/10/17 01/11/17 05:59 05:59 05:59 Intake Total 5148 1000 Output Total 775 1090 Balance 4373 -90 PT 14.0 SEC (12.0-15.0) 01/09/17 00:50 INR 1.09 (0.83-1.16) 01/09/17 00:50 - Physical Exam Constitutional: no apparent distress, appears nourished Eyes: PERRL, anicteric sclera Ears, Nose, Mouth, Throat: moist mucous membranes, hearing normal Cardiovascular: regular rate and rhythym, no murmur, rub, or gallop Respiratory: no respiratory distress, no rales or rhonchi Gastrointestinal: normoactive bowel sounds, soft, non-tender abdomen, No guarding, No rebound, No distension Genitourinary: no bladder fullness, No figueroa in urethra Skin: warm, normal color Musculoskeletal: full muscle strength, no muscle tenderness Neurologic: AAOx3 ICD10 Worksheet Patient Problems: Problems Problem Status Onset Upper GI bleed Acute Failure to thrive Acute Fall Acute Hyponatremia Acute Low back pain Acute Multiple rib fractures Acute Pneumothorax Acute Right lower lobe pneumonia Acute Skin breakdown Acute Weakness Acute
--- NOTE | 2017-01-10 13:21 | SOAPPROG ---
HANNAH Progress Note Assessment/Plan: Assessment: UGIB from DU with VV treated with clip due to stigmata for high risk of rebleeding. Has done well with no e/o rebleeding. Plan: IV PPI one more day if does well then PO PPI tomorrow Check H+H and H. pylori antibody No NSAIDS consider restart plavix with in 7 days Repeat EGD if rebleeds Subjective: CC hematemesis No further n/v Objective: Vital Signs Temp Pulse Resp BP Pulse Ox 36.8 C 90 14 103/64 94 01/10/17 12:00 01/10/17 12:00 01/10/17 12:00 01/10/17 12:00 01/10/17 12:00 Laboratory Results 01/09/17 12:05 01/09/17 01/10/17 01/11/17 05:59 05:59 05:59 Intake Total 5148 1000 Output Total 775 1090 Balance 4373 -90 PT 14.0 SEC (12.0-15.0) 01/09/17 00:50 INR 1.09 (0.83-1.16) 01/09/17 00:50 Physical Exam - Physical Exam General Appearance: no apparent distress Respiratory: lungs clear, normal breath sounds Cardiac/Chest: regular rate, rhythm Abdomen: non-tender, soft ICD10 Worksheet Patient Problems: Problems Problem Status Onset Upper GI bleed Acute Failure to thrive Acute Fall Acute Hyponatremia Acute Low back pain Acute Multiple rib fractures Acute Pneumothorax Acute Right lower lobe pneumonia Acute Skin breakdown Acute Weakness Acute
--- NOTE | 2017-01-10 16:15 | ASMTCMCOM ---
CM Note CM Note Notes: Pt lives at [facility], will return when medically stable. DONNY w/f. Date Signed: 01/10/2017 04:14 PM Electronically Signed By:Danna San RN
[2017-01-10 17:39] LABS: % IMMATURE GRANULYOCYTES 0.6 % (0.0-1.1); ABSOLUTE IMMATURE GRANULOCYTES 0.03 10^3/uL (0.00-0.10); ADD DIFF? NO; ADD MORPH? NO; ADD SCAN? NO; ATYPICAL LYMPHOCYTE FLAG 0 (0-99); FRAGMENT RBC FLAG 0 (0-99); HEMATOCRIT 26.1 % (40.0-51.0); HEMOGLOBIN 8.7 g/dL (13.7-17.5); LEFT SHIFT FLG 0 (0-99); LIPEMIA HEMOLYSIS FLAG 80 (0-99); MEAN CELL HEMOGLOBIN 30.7 pg (27.9-34.1); MEAN CELL HEMOGLOBIN CONCENTR. 33.3 g/dL (32.4-36.7); MEAN CELL VOLUME 92.2 fL (81.5-99.8); MEAN PLATELET VOLUME 9.7 fL (8.7-11.7); PLATELET CLUMPS FLAG 0 (0-99); PLATELET COUNT 205 10^3/uL (150-400); RED BLOOD CELL COUNT 2.83 10^6/uL (4.40-6.38); RED CELL DISTRIBUTION WIDTH 15.8 % (11.5-15.2)
[2017-01-10] MEDS: ATORVASTATIN CALCIUM 20 MG TAB PO SCH (21:36)
[2017-01-10] MEDS: PANTOPRAZOLE SODIUM 40 MG in NS 100 ML IV SCH (21:36)
[2017-01-10] MEDS: CYCLOBENZAPRINE 10 MG TAB PO SCH (21:36)
[2017-01-11] MEDS: HYDROCODONE/APAP 5/325 TAB PO PRN ×4 (02:43→20:03)
[2017-01-11 05:29] LABS: % IMMATURE GRANULYOCYTES 0.4 % (0.0-1.1); ABSOLUTE IMMATURE GRANULOCYTES 0.02 10^3/uL (0.00-0.10); ADD DIFF? NO; ADD MORPH? NO; ADD SCAN? NO; ATYPICAL LYMPHOCYTE FLAG 0 (0-99); FRAGMENT RBC FLAG 0 (0-99); HEMATOCRIT 23.6 % (40.0-51.0); LEFT SHIFT FLG 0 (0-99); LIPEMIA HEMOLYSIS FLAG 90 (0-99); MEAN CELL HEMOGLOBIN CONCENTR. 33.9 g/dL (32.4-36.7); MEAN CELL VOLUME 91.5 fL (81.5-99.8); MEAN PLATELET VOLUME 9.7 fL (8.7-11.7); PLATELET CLUMPS FLAG 0 (0-99); PLATELET COUNT 167 10^3/uL (150-400); RED BLOOD CELL COUNT 2.58 10^6/uL (4.40-6.38); RED CELL DISTRIBUTION WIDTH 15.7 % (11.5-15.2)
[2017-01-11] MEDS: amLODIPine BESYLATE 5 MG TAB PO SCH (09:41)
[2017-01-11] MEDS: PANTOPRAZOLE SODIUM 40 MG in NS 100 ML IV SCH (09:42)
[2017-01-11] MEDS: MULTIVITAMINS 1 EACH TAB PO SCH (09:42)
--- NOTE | 2017-01-11 10:57 | SOAPPROG ---
SOAP Progress Note Assessment/Plan: Assessment: UGIB from DU with VV treated with clip due to stigmata for high risk of rebleeding. There has been a decline in H+H but otherwise he is stable with no e/o rebleeding. Suspect drop from equilibration. Pt has not had h. pylori test due to refused blood draw. Plan: Spoke to lab they can add on H. pylori antibody test to prior blood draw Rec recheck H+H and if stable then change to PO PPI 01/11/17 10:50 Subjective: CC GIB Pt has had no further hematemesis, no melena Objective: Vital Signs Temp Pulse Resp BP Pulse Ox 36.7 C 85 16 123/68 H 90 L 01/11/17 08:00 01/11/17 08:00 01/11/17 08:00 01/11/17 09:41 01/11/17 08:00 Laboratory Results 01/11/17 05:07 01/10/17 01/11/17 01/12/17 05:59 05:59 05:59 Intake Total 5148 1500 Output Total 775 5466 525 Balance 4373 -3165 -525 PT 14.0 SEC (12.0-15.0) 01/09/17 00:50 INR 1.09 (0.83-1.16) 01/09/17 00:50 Physical Exam - Physical Exam General Appearance: no apparent distress Respiratory: lungs clear, normal breath sounds Cardiac/Chest: regular rate, rhythm Abdomen: non-tender, soft ICD10 Worksheet Patient Problems: Problems Problem Status Onset Upper GI bleed Acute Failure to thrive Acute Fall Acute Hyponatremia Acute Low back pain Acute Multiple rib fractures Acute Pneumothorax Acute Right lower lobe pneumonia Acute Skin breakdown Acute Weakness Acute
--- NOTE | 2017-01-11 11:13 | HOSPPROG ---
Hospitalist Progress Note Assessment/Plan: 66 yo M w cva here w hematemesis; found to have large DU w visible, albeit non bleeding vessel. fever: suspect aspiration, likely at time of vomiting, presentation cxr now no urianry sx, abd pain UGIB: has agreed to repeat hct today change ppi to po repeat hct in AM ABLA: await repeat hct proph: scd's htn: amlodipine hyperlipidemia: statin dispo: requires inpatient stay for UGIB w high risk lesion Subjective: case discussed w Dr Tony Objective: Vital Signs Temp Pulse Resp BP Pulse Ox 36.7 C 85 16 123/68 H 90 L 01/11/17 08:00 01/11/17 08:00 01/11/17 08:00 01/11/17 09:41 01/11/17 08:00 Laboratory Results 01/11/17 05:07 01/10/17 01/11/17 01/12/17 05:59 05:59 05:59 Intake Total 5148 1500 Output Total 775 4665 525 Balance 4373 -3165 -525 PT 14.0 SEC (12.0-15.0) 01/09/17 00:50 INR 1.09 (0.83-1.16) 01/09/17 00:50 - Physical Exam Constitutional: no apparent distress, appears nourished Eyes: PERRL Ears, Nose, Mouth, Throat: moist mucous membranes, hearing normal Cardiovascular: regular rate and rhythym, no murmur, rub, or gallop, No tachycardia Respiratory: no respiratory distress, other (crackles at bases, R > L. good air movement, no wheeze) Gastrointestinal: normoactive bowel sounds, soft, non-tender abdomen Genitourinary: no bladder fullness, No figueroa in urethra Skin: warm, normal color Musculoskeletal: full muscle strength, no muscle tenderness Neurologic: AAOx3, sensation intact bilaterally Psychiatric: interacting appropriately, not anxious ICD10 Worksheet Patient Problems: Problems Problem Status Onset Upper GI bleed Acute Failure to thrive Acute Fall Acute Hyponatremia Acute Low back pain Acute Multiple rib fractures Acute Pneumothorax Acute Right lower lobe pneumonia Acute Skin breakdown Acute Weakness Acute
[2017-01-11 11:30] LABS: ANION GAP 8 mEq/L (8-16); CALCIUM 8.3 mg/dL (8.5-10.4); CARBON DIOXIDE 21 mEq/l (22-31); CHLORIDE 109 mEq/L (97-110); GLOMERULAR FILTRATION RATE > 60; GLUCOSE 91 mg/dL (70-100); POTASSIUM 3.6 mEq/L (3.5-5.2); SODIUM 138 mEq/L (134-144)
[2017-01-11] MEDS: traMADol 50 MG TAB PO PRN ×2 (11:53→17:24)
[2017-01-11 14:45] LABS: % IMMATURE GRANULYOCYTES 0.5 % (0.0-1.1); ABSOLUTE IMMATURE GRANULOCYTES 0.02 10^3/uL (0.00-0.10); ADD DIFF? NO; ADD MORPH? NO; ADD SCAN? NO; ATYPICAL LYMPHOCYTE FLAG 0 (0-99); FRAGMENT RBC FLAG 0 (0-99); HEMATOCRIT 25.5 % (40.0-51.0); HEMOGLOBIN 8.5 g/dL (13.7-17.5); LEFT SHIFT FLG 0 (0-99); LIPEMIA HEMOLYSIS FLAG 80 (0-99); MEAN CELL HEMOGLOBIN 30.8 pg (27.9-34.1); MEAN CELL HEMOGLOBIN CONCENTR. 33.3 g/dL (32.4-36.7); MEAN CELL VOLUME 92.4 fL (81.5-99.8); MEAN PLATELET VOLUME 9.5 fL (8.7-11.7); PLATELET CLUMPS FLAG 0 (0-99); PLATELET COUNT 154 10^3/uL (150-400); RED BLOOD CELL COUNT 2.76 10^6/uL (4.40-6.38); RED CELL DISTRIBUTION WIDTH 15.9 % (11.5-15.2)
[2017-01-11] MEDS: ERTAPENEM 1 GM in NS 100 ML IV SCH (17:15)
[2017-01-11] MEDS: PANTOPRAZOLE SODIUM 40 MG TAB PO SCH (20:03)
[2017-01-11] MEDS: CYCLOBENZAPRINE 10 MG TAB PO SCH (20:03)
[2017-01-11] MEDS: ATORVASTATIN CALCIUM 20 MG TAB PO SCH (20:03)
[2017-01-12] MEDS: HYDROCODONE/APAP 5/325 TAB PO PRN ×4 (02:02→21:55)
[2017-01-12 05:28] LABS: % IMMATURE GRANULYOCYTES 0.4 % (0.0-1.1); ABSOLUTE IMMATURE GRANULOCYTES 0.02 10^3/uL (0.00-0.10); ADD DIFF? NO; ADD MORPH? NO; ADD SCAN? NO; ATYPICAL LYMPHOCYTE FLAG 20 (0-99); FRAGMENT RBC FLAG 0 (0-99); HEMATOCRIT 23.8 % (40.0-51.0); LEFT SHIFT FLG 0 (0-99); LIPEMIA HEMOLYSIS FLAG 80 (0-99); MEAN CELL HEMOGLOBIN 30.8 pg (27.9-34.1); MEAN CELL HEMOGLOBIN CONCENTR. 33.6 g/dL (32.4-36.7); MEAN CELL VOLUME 91.5 fL (81.5-99.8); MEAN PLATELET VOLUME 9.5 fL (8.7-11.7); PLATELET CLUMPS FLAG 0 (0-99); PLATELET COUNT 163 10^3/uL (150-400); RED CELL DISTRIBUTION WIDTH 15.6 % (11.5-15.2)
[2017-01-12 05:59] LABS: ANION GAP 7 mEq/L (8-16); CALCIUM 8.2 mg/dL (8.5-10.4); CARBON DIOXIDE 23 mEq/l (22-31); CHLORIDE 106 mEq/L (97-110); CREATININE 0.9 mg/dL (0.7-1.3); GLOMERULAR FILTRATION RATE > 60; GLUCOSE 97 mg/dL (70-100); POTASSIUM 3.6 mEq/L (3.5-5.2); SODIUM 136 mEq/L (134-144)
[2017-01-12] MEDS: MULTIVITAMINS 1 EACH TAB PO SCH (08:27)
[2017-01-12] MEDS: amLODIPine BESYLATE 5 MG TAB PO SCH (08:28)
[2017-01-12] MEDS: ERTAPENEM 1 GM in NS 100 ML IV SCH (08:29)
--- NOTE | 2017-01-12 10:49 | HOSPPROG ---
Hospitalist Progress Note Assessment/Plan: 66 yo M w cva here w hematemesis; found to have large DU w visible, albeit non bleeding vessel. aspiration pneumonia: yesterday cxr w RLL infiltrate (interp by me ) day 05/23 abx; on erta ow, can transition to augmentin in dc UGIB: has agreed to repeat hct today change ppi to po repeat hct in AM hct drifting down denies melena or hematemesis high risk lesion (DU w vessel) so will keep overnight ABLA: await repeat hct proph: scd's htn: amlodipine hyperlipidemia: statin dispo: requires inpatient stay for UGIB w high risk lesion Subjective: case d/w dr wright. afebrile overnight Objective: Vital Signs Temp Pulse Resp BP Pulse Ox 36.7 C 82 12 128/76 H 91 L 01/12/17 07:58 01/12/17 07:58 01/12/17 07:58 01/12/17 07:58 01/12/17 07:58 Laboratory Results 01/12/17 05:12 01/12/17 05:12 01/11/17 01/12/17 01/13/17 05:59 05:59 05:59 Intake Total 1500 550 Output Total 4665 3125 400 Balance -5127 -3811 -400 PT 14.0 SEC (12.0-15.0) 01/09/17 00:50 INR 1.09 (0.83-1.16) 01/09/17 00:50 - Physical Exam Constitutional: no apparent distress, appears nourished Eyes: PERRL, anicteric sclera Ears, Nose, Mouth, Throat: moist mucous membranes, hearing normal Cardiovascular: regular rate and rhythym, no murmur, rub, or gallop Respiratory: no respiratory distress, no rales or rhonchi, other (crackles R base) Gastrointestinal: normoactive bowel sounds, soft, non-tender abdomen, other Genitourinary: no bladder fullness, No figueroa in urethra Skin: warm, mottled Musculoskeletal: full muscle strength, no muscle tenderness Neurologic: AAOx3, sensation intact bilaterally Psychiatric: interacting appropriately ICD10 Worksheet Patient Problems: Problems Problem Status Onset Upper GI bleed Acute Failure to thrive Acute Fall Acute Hyponatremia Acute Low back pain Acute Multiple rib fractures Acute Pneumothorax Acute Right lower lobe pneumonia Acute Skin breakdown Acute Weakness Acute
[2017-01-12] MEDS: PANTOPRAZOLE SODIUM 40 MG TAB PO SCH ×2 (11:22→20:51)
[2017-01-12 11:25] VITALS: RESP 20
--- NOTE | 2017-01-12 12:31 | SOAPPROG ---
[facility]OM[facility] Progress Note Assessment/Plan: Assessment: UGIB from DU with VV treated with clip due to stigmata for high risk of rebleeding. There has been a decline in H+H but otherwise he is stable with no e/o rebleeding. Suspect drop from equilibration. Pt has not had h. pylori test due to refused blood draw. Plan: Spoke to lab they can add on H. pylori antibody test to prior blood draw Rec recheck H+H and if stable then change to PO PPI 01/11/17 10:50 01/12/17 12:29 There has been some decline in H+H again today but not worse then yesterday AM. As there is no melena or hematemesis and VS are stable I doubt rebleeding. H. pylori is neg p/ PO PPI for 12 weeks Will sign off for now Subjective: CC GIB Pt has had no n/v or melena Objective: Vital Signs Temp Pulse Resp BP Pulse Ox 36.9 C 85 20 118/67 91 L 01/12/17 11:23 01/12/17 11:23 01/12/17 11:23 01/12/17 11:23 01/12/17 11:23 Laboratory Results 01/12/17 05:12 01/12/17 05:12 01/11/17 01/12/17 01/13/17 05:59 05:59 05:59 Intake Total 1500 550 Output Total 5745 8608 400 Balance -3165 -2575 -400 PT 14.0 SEC (12.0-15.0) 01/09/17 00:50 INR 1.09 (0.83-1.16) 01/09/17 00:50 Physical Exam - Physical Exam General Appearance: alert, no apparent distress Respiratory: lungs clear Cardiac/Chest: regular rate, rhythm Abdomen: non-tender, soft ICD10 Worksheet Patient Problems: Problems Problem Status Onset Upper GI bleed Acute Failure to thrive Acute Fall Acute Hyponatremia Acute Low back pain Acute Multiple rib fractures Acute Pneumothorax Acute Right lower lobe pneumonia Acute Skin breakdown Acute Weakness Acute
--- NOTE | 2017-01-12 14:42 | ASMTCMCOM ---
CM Note CM Note Notes: Chart reviewed. Per MD keep patient for observation overnight as he has high risk lesion. Called Ruper[facility] at [facility] to relay dc information. If patient ok to dc over the weekend, CM to call main number and ask to speak to nurse nurse manager at [phone]. CM to follow. Date Signed: 01/12/2017 02:41 PM Electronically Signed By:Miley Dumont RN
[2017-01-12] MEDS: ATORVASTATIN CALCIUM 20 MG TAB PO SCH (20:51)
[2017-01-12] MEDS: CYCLOBENZAPRINE 10 MG TAB PO SCH (20:51)
[2017-01-13 09:23] VITALS: BP 126/76; PULSE 88; TEMP 98.2; O2SAT 92
[2017-01-13] MEDS: ERTAPENEM 1 GM in NS 100 ML IV SCH (09:35)
[2017-01-13] MEDS: PANTOPRAZOLE SODIUM 40 MG TAB PO SCH (09:40)
[2017-01-13] MEDS: amLODIPine BESYLATE 5 MG TAB PO SCH (09:40)
[2017-01-13] MEDS: MULTIVITAMINS 1 EACH TAB PO SCH (09:40)
--- NOTE | 2017-01-13 09:40 | HOSPPROG ---
Hospitalist Progress Note Assessment/Plan: 66 yo M w cva here w hematemesis; found to have large DU w visible, albeit non bleeding vessel. aspiration pneumonia: yesterday cxr w RLL infiltrate (interp by me ) day 06/20 abx; on erta ow, can transition to augmentin in dc UGIB: refusing labs today, despite discussion bid ppi clinically no signs of bleeding ABLA: await repeat hct proph: scd's htn: amlodipine hyperlipidemia: statin dispo: dc today to MV > 30 minutes on dc Subjective: refusing labs, yelling at staff Objective: Vital Signs Temp Pulse Resp BP Pulse Ox 36.8 C 88 20 126/76 H 92 01/13/17 08:00 01/13/17 08:00 01/13/17 08:00 01/13/17 08:00 01/13/17 08:00 Laboratory Results 01/12/17 05:12 01/12/17 05:12 01/12/17 01/13/17 01/14/17 05:59 05:59 05:59 Intake Total 550 250 Output Total 3125 2650 300 Balance -2575 -2400 -300 PT 14.0 SEC (12.0-15.0) 01/09/17 00:50 INR 1.09 (0.83-1.16) 01/09/17 00:50 - Physical Exam Constitutional: no apparent distress, appears nourished Eyes: PERRL, anicteric sclera Ears, Nose, Mouth, Throat: moist mucous membranes, hearing normal Cardiovascular: regular rate and rhythym, no murmur, rub, or gallop Respiratory: no respiratory distress, no rales or rhonchi Gastrointestinal: normoactive bowel sounds, soft, non-tender abdomen Genitourinary: no bladder fullness, No figueroa in urethra Skin: warm, normal color Musculoskeletal: full muscle strength ICD10 Worksheet Patient Problems: Problems Problem Status Onset Upper GI bleed Acute Failure to thrive Acute Fall Acute Hyponatremia Acute Low back pain Acute Multiple rib fractures Acute Pneumothorax Acute Right lower lobe pneumonia Acute Skin breakdown Acute Weakness Acute
[2017-01-13] MEDS: HYDROCODONE/APAP 5/325 TAB PO PRN (09:43)
--- NOTE | 2017-01-13 09:46 | PDIAF ---
- Diagnosis Diagnosis: UGIB 2/2 duodenal ulcer Code Status: Full Code - Medication Management Discharge Medications: Medications to Continue on Transfer Atorvastatin Calcium [Lipitor 20 mg (*)] 20 mg PO HS 05/24/15 [Last Taken ] Cholecalciferol Vit D3 [Vitamin D3 (*)] 50,000 unit PO Q30D 01/09/17 [Last Taken 01/08/17] Cyclobenzaprine [Flexeril 10 MG (*)] 10 mg PO HS 01/09/17 [Last Taken 01/08/17] Multivitamins [Multivitamin (*)] 1 each PO DAILY 01/09/17 [Last Taken 01/08/17] Sennosides/Docusate Sodium [Senokot-S] 2 tab PO BID PRN 01/09/17 [Last Taken ] amLODIPine BESYLATE [Norvasc 5 mg (*)] 5 mg PO DAILY 01/09/17 [Last Taken ] traMADol [Ultram 50 mg (*)] 50 mg PO Q6HRS PRN 01/09/17 [Last Taken 01/08/17 21: 00] Amoxicillin/Clavulanate Pot [Augmentin 875 MG TAB (*)] 875 mg PO BID #8 tab [Last Taken Unknown] Clopidogrel Bisulfate [Plavix (*)] 75 mg PO DAILY #1 tab 01/13/17 [Last Taken Unknown] Pantoprazole Sodium [Protonix 40mg (*)] 40 mg PO BID tab 01/13/17 [Last Taken Unknown] Treatment Counselor Antibiotics: 4 days of augmentin; start pm 01/13, stop pm 01/16. restart plavix 01/28. Discharge Medications: Refer to the Discharge Home Medication list for PRN reason. - Orders Services needed: Registered Nurse, Physical Therapy, Occupational Therapy, Speech Language Pathologist Diet Recommendation: no restrictions on diet Diet Texture: Regular Texture Diet - Follow Up Care Current Providers and Referrals: Patient,NotPresent [Unknown] - As per Instructions
--- NOTE | 2017-01-13 10:00 | GDS ---
[f rep st] DISCHARGE SUMMARY DISCHARGE DIAGNOSES: 1. Upper gastrointestinal bleed secondary to duodenal ulcer with visible vessel. 2. Acute blood loss anemia. 3. Aspiration pneumonia. 4. History of stroke. HOSPITAL COURSE: Please see admission history and physical by Dr. Justa Cid. The patient presen shane overnight on the with hematemesis. He takes NSAIDs and Plavix. He had a scope with the afo rementioned results. He did not require transfusion. On the 3rd hospital day, he developed fever an d tachycardia, and he had crackles at his right base. Chest x-ray showed infiltrate consistent with aspiration pneumonia. Started on ertapenem, received 3 doses. Will get 4 additional days of Augment in at [place]. Regarding his Plavix, I would recommend holding it until January 28, given the high risk nature of his bleeding lesion. He had ibuprofen on his JUN, which I have discontinued. He should receive b.i.d. PPI indefinitely. /[id number]/MODL
--- NOTE | 2017-01-13 15:06 | ASDISCHSUM ---
Discharge Information Plan Status:SNF Medically Cleared to Leave: Discharge Date:01/13/2017 12:44 PM D/C Disposition:[facility] ADT D/C Disposition:Home, Routine, Self-Care Projected Discharge Date:01/13/2017 12:44 PM Transportation at D/C:Wheelchair Van Discharge Delay Reason: Follow-Up Date:01/13/2017 12:44 PM Discharge Slot: Final Diagnosis: Placement Information Patient Contact Information Contact Name:LUIS E Relationship:Daughter Address: City:[place] Alternate Phone: [facility]/BookingBug Code:YOANA Email: Financial Information Financial Class:Medicare Advantage Plans Primary Plan Desc:[facility] ADVANTAGE PLANS Primary Plan Number:[id number] Secondary Plan Desc: Secondary Plan Number: Assessment Information [facility] CM Progress Note CM Note CM Note Notes: Pt lives at [facility], will return when medically stable. CM w/f. Date Signed: 01/10/2017 04:14 PM Electronically Signed By:Danna San RN [facility] CM Progress Note CM Note CM Note Notes: Chart reviewed. Per MD keep patient for observation overnight as he has high risk lesion. Called Ruperto at [facility] [employer] to relay dc information. If patient ok to dc over the weekend, CM to call main number and ask to speak to nurse marketing content manager at [phone]. CM to follow. Date Signed: 01/12/2017 02:41 PM Electronically Signed By:Miley Dumont RN Intervention Information
--- NOTE | 2017-01-13 16:28 | ASMTCMCOM ---
CM Note CM Note Notes: Pt. d/c'ed today to [facility] where he lives. Whitley [phone], 4th floor RN at , helped coordinate d/c. [facility] arranged for their own van to pick Pt. up. [employer] faxed floor RN [facility] d/c paperwork [phone]. Fax confirmed received. Date Signed: 01/13/2017 04:28 PM Electronically Signed By:Kristie Jain LCSW
[2017-02-08] MEDS ORDERED: CHOLECALCIFEROL VIT D3 50,000 UNIT CAP PO SCH (15:45)
== END 2017-01-13 12:44 | DRG 377 ==
LOC: EDUNIT# → F3E 08:32
PROVIDERS: ADMIT Hospitalist; ATTEND Internal Medicine
PROC: 0DJ08ZZ Inspection of Upper Intestinal Tract, Via Natural or Artificial Opening Endoscopic (ICD-10-PCS; principal; 2017-01-09 15:00)
DX: K26.4 Chronic or unspecified duodenal ulcer with hemorrhage (principal); K44.9 Diaphragmatic hernia without obstruction or gangrene; K21.0 Gastro-esophageal reflux disease with esophagitis; J69.0 Pneumonitis due to inhalation of food and vomit; D62 Acute posthemorrhagic anemia; N17.9 Acute kidney failure, unspecified; M54.5 Low back pain; Z79.899 Other long term (current) drug therapy; I69.351 Hemiplegia and hemiparesis following cerebral infarction affecting right dominant side; Z79.02 Long term (current) use of antithrombotics/antiplatelets; F17.210 Nicotine dependence, cigarettes, uncomplicated; I10 Essential (primary) hypertension; E78.5 Hyperlipidemia, unspecified
CPT/HCPCS: 96365; 97162-GP; 97166-GO; G8978-GP-CJ; G8979-GP-CJ; G8980-GP-CJ; G8987-GO-CK; G8988-GO-CJ; J0171; J1335; J2704